=== PATIENT | female | born 1950 | race Caucasian/White ===

== ENCOUNTER → 2018-03-20 | Outpatient (CLI) | payer MEDICARE, OTHER ==
[~2018-03-20] MED LIST: ALBU.083IS IH; ALBU3IS INH; ALBU90OI61 INH; AZIT250 PO; FLUT.05NI; GUAI600T33 PO; OMEP20ER PO; PARO20 PO; PRED20 PO; [UNRECOGNIZED DRUG - OTHER]
== END | disposition home or self-care (01) ==
LOC: LAB SHORT 12:21 → LAB 12:21
DX: R32 Unspecified urinary incontinence (principal)
CPT/HCPCS: 87077; 87086; 87147; 87186

== ENCOUNTER 2018-12-02 10:31 | Day surgery (SDC) | payer MEDICARE, OTHER ==
[~2018-12-02] VITALS: Ht 162.6 cm; Wt 113.4 kg
[~2018-12-02 10:31] MED LIST changes: +Advair Hfa 230-12 GM INH; +Lopressor 25 mg25 MG PO
== END 2018-12-02 11:55 | disposition home or self-care (01) ==
LOC: ORSCSDS 10:31
PROVIDERS: Internal Medicine Gastroenterology
PROC: 0DB68ZX Excision of Stomach, Via Natural or Artificial Opening Endoscopic, Diagnostic (ICD-10-PCS; principal; 2018-12-02 11:45)
DX: B19.20 Unspecified viral hepatitis C without hepatic coma (principal); K20.9 Esophagitis, unspecified; K29.70 Gastritis, unspecified, without bleeding; K29.80 Duodenitis without bleeding; K44.9 Diaphragmatic hernia without obstruction or gangrene; I10 Essential (primary) hypertension; J45.909 Unspecified asthma, uncomplicated; K21.9 Gastro-esophageal reflux disease without esophagitis; E66.01 Morbid (severe) obesity due to excess calories; Z68.41 Body mass index [BMI] 40.0-44.9, adult; Z79.899 Other long term (current) drug therapy
CPT/HCPCS: 88305; 88342; J2250; J7120

== ENCOUNTER 2019-03-16 17:13 | Emergency (ER) | payer MEDICARE, OTHER ==
[~2019-03-16] VITALS: Ht 162.6 cm; Wt 77.1 kg
[2019-03-16 18:06] LABS: BASOPHILS ABSOLUTE AUTO 0.02 K/mm3 (0.00-0.23); BASOPHILS PERCENT AUTO 0 % (0-2); EOSINOPHILS ABSOLUTE AUTO 0.18 K/mm3 (0.00-0.68); EOSINOPHILS PERCENT AUTO 4 % (0-6); Hematocrit 42.7 % (33.0-51.0); Hemoglobin 13.7 g/dL (11.5-16.0); IMMATURE GRAN ABSOLUTE AUTO 0.02 K/mm3 (0.00-0.10); IMMATURE GRAN PERCENT AUTO 0 % (0-1); LYMPHOCYTES ABSOLUTE AUTO 0.81 K/mm3 (0.84-5.20); LYMPHOCYTES PERCENT AUTO 17 % (21-46); MONOCYTES ABSOLUTE AUTO 0.47 K/mm3 (0.16-1.47); MONOCYTES PERCENT AUTO 10 % (4-13); Mean Corpuscular HGB 30.6 pg (26.0-34.0); Mean Corpuscular HGB Conc 32.1 g/dL (31.5-36.5); Mean Corpuscular Volume 95 fL (80-100); Mean Platelet Volume 10.1 fL (9.1-12.4); NEUTROPHILS ABSOLUTE AUTO 3.36 K/mm3 (1.96-9.15); NEUTROPHILS PERCENT AUTO 69 % (41-73); Platelet Count 165 K/mm3 (150-400); RDW Coefficient Variation 13.3 % (11.7-14.2); RDW Standard Deviation 47.3 fL (35.1-46.3); Red Blood Cell Count 4.48 M/mm3 (3.80-5.20); White Blood Cell Count 4.86 K/mm3 (4.00-11.30)
[2019-03-16 18:33] LABS: Alanine Aminotransfer (ALT/SGP 23 U/L (12-78); Albumin, Blood 3.7 g/dL (3.4-5.0); Albumin/Globulin Ratio 0.9 (0.8-1.8); Alk Phos 121 U/L (50-136); Anion Gap 3 mmol/L (6-16); Aspartate Aminotrans (AST/SGOT 25 U/L (12-37); Blood Urea Nitrogen 15 mg/dL (8-24); Bun/Creatinine Ratio 20.1 (12.0-20.0); CO2, Blood 27 mmol/L (21-32); Calcium, Blood 8.7 mg/dL (8.5-10.1); Chloride, Blood 109 mmol/L (98-108); Creatinine, Blood 0.75 mg/dL (0.40-1.00); Globulin, Blood 4.1 g/dL (2.2-4.0); Glomerular Filtration Rate >60 (60-); Glucose, Blood 90 mg/dL (70-99); Potassium, Blood 4.2 mmol/L (3.5-5.5); Sodium, Blood 139 mmol/L (136-145); Total Protein, Blood 7.8 g/dL (6.4-8.2)
[2019-03-16 20:22] LABS: Source, Urine Clean Catch
[2019-03-16 20:29] LABS: Appearance, Urine Hazy (Clear); Bilirubin, Urine Neg (Neg); Blood, Urine 1+ (Neg); Color, Urine Yellow (P-Yellow); Glucose Qualitative, Urine Neg (Neg); Ketones, Urine Neg (Neg); Leukocyte Esterase, Urine 2+ (Neg); Nitrite, Urine Pos (Neg); Protein, Urine 1+ (Neg); Specific Gravity, Urine 1.015 (1.003-1.022); Urobilinogen, Urine 2+ (Normal)
[2019-03-16 20:37] LABS: Bacteria Many /hpf; Red Blood Cells, Urine 0-2 /hpf (0-2); Squamous Epithelial Cells Few /hpf (Few)
[2019-03-16] MEDS ORDERED: CEPH500 PO (21:08)
[2019-03-16] MEDS ORDERED: Percocet 5-3251 EACH PO (21:08)
== END 2019-03-16 21:30 | disposition home or self-care (01) ==
LOC: ER 17:13
PROVIDERS: Emergency Medicine; Physician Assistant
DX: S81.812A Laceration without foreign body, left lower leg, initial encounter (principal); L03.116 Cellulitis of left lower limb; W17.89XA Other fall from one level to another, initial encounter; Z79.899 Other long term (current) drug therapy; Z87.891 Personal history of nicotine dependence
CPT/HCPCS: 36415; 73590; 80053; 81001; 85025; 87077; 87086; 87186; 93971; 96365; 96375; 99284-25; A9270; J0690; J2405